=== PATIENT | female | born 1980 | race Caucasian/White ===

== ENCOUNTER 2016-12-11 23:22 | Emergency (ER) | payer MEDICAID ==
[2016-12-11 23:43] VITALS: BP 117/74; PULSE 81; RESP 14; TEMP 98; O2SAT 100
--- NOTE | 2016-12-12 00:40 | C.PDOC ---
History Of Present Illness 36 year old female presents to the ED with complaints of right hand pain radiating to her wrist after falling on her right hand yesterday. Patient notes pain is worse with motion but denies taking any pain medication. She applied ice which improved the swelling but pain persisted. Patient denies numbness, weakness, or any other complaints at this time. Time Seen by Provider: 12/12/16 00:06 Chief Complaint (Nursing): Finger,Hand,&Wrist History Per: Patient History/Exam Limitations: no limitations Onset/Duration Of Symptoms: Hrs Current Symptoms Are (Timing): Still Present Quality: "Pain" Past Medical History Reviewed: Historical Data, Nursing Documentation, Vital Signs Vital Signs: Last Vital Signs Temp 98 F 12/11/16 23:41 Pulse 81 12/11/16 23:41 Resp 14 12/11/16 23:41 BP 117/74 12/11/16 23:41 Pulse Ox 100 12/12/16 02:27 - Medical History PMH: Gall Bladder Disease (x2 years) Surgical History: Cholecystectomy Family History: States: Unknown Family Hx - Social History Hx Tobacco Use: Yes Hx Alcohol Use: Yes Hx Substance Use: No - Immunization History Hx Tetanus Toxoid Vaccination: No Hx Influenza Vaccination: No Hx Pneumococcal Vaccination: No Review Of Systems Musculoskeletal: Positive for: Hand Pain (right hand pain that radiates to right wrist) Neurological: Negative for: Weakness, Numbness Physical Exam - Physical Exam Appears: Non-toxic, No Acute Distress Skin: Warm, Dry Head: Normacephalic Eye(s): bilateral: Normal Inspection, PERRL, EOMI Neck: Normal ROM, Supple Chest: Symmetrical, No Deformity Extremity: Normal ROM, Tenderness (tenderness to dorsal aspect of right hand 3rd , 4th, and 5th MCP), Capillary Refill, No Deformity, No Swelling (no gross swelling ) Extremity: Bilateral: Normal Color And Temperature Pulses: Left Radial: Normal, Right Radial: Normal Neurological/Psych: Oriented x3, Normal Motor, Normal Sensation ED Course And Treatment O2 Sat by Pulse Oximetry: 100 (room air ) - Other Rad Right Hand X-Ray X-Ray: Interpreted by Me, Read By Radiologist Interpretation: No fracture or dislocation Progress Note: Patient was given motrin. Suggested to follow up with PMD. Disposition Counseled Patient/Family Regarding: Diagnosis, Need For Followup, Rx Given - Disposition Disposition: HOME/ ROUTINE Disposition Time: 00:38 Condition: STABLE Additional Instructions: Please follow up with PMD or in clinic Take motrin for pain Return to ER if worse Prescriptions: Ibuprofen [Motrin] 600 mg PO Q6H #30 tab Instructions: Contusion in Adults (ED) Forms: Work Excuse - Clinical Impression Clinical Impression: Hand contusion - Scribe Statement The provider has reviewed the documentation as recorded by the Scribe Maki Vee All medical record entries made by the Bearibshantell were at my direction and personally dictated by me. I have reviewed the chart and agree that the record accurately reflects my personal performance of the history, physical exam, medical decision making, and the department course for this patient. I have also personally directed, reviewed, and agree with the discharge instructions and disposition.
--- NOTE | 2016-12-12 08:49 | RAD ---
PROCEDURE: Right Hand Radiographs. HISTORY: r/o fx COMPARISON: None. FINDINGS: BONES: Bone alignment and mineralization are normal. No acute displaced fracture. JOINTS: Normal. SOFT TISSUES: Normal. OTHER FINDINGS: None. IMPRESSION: No acute fracture or dislocation.
== END 2016-12-12 00:48 | disposition home or self-care (01) ==
LOC: C.ER 23:22
DX: S60.221A Contusion of right hand, initial encounter (principal); W18.30XA Fall on same level, unspecified, initial encounter